=== PATIENT | male | born 1955 | race Caucasian/White ===

== ENCOUNTER 2017-02-12 13:41 | Observation (INO) | payer SELFPAY ==
[~2017-02-12] VITALS: Ht 172.7 cm; Wt 80.0 kg
--- NOTE | 2017-02-12 14:08 | PD ---
HPI Chief Complaint: dizzyness Time Seen by Provider: 13:55 Travel History International Travel<30 days: No Contact w/Intl Traveler<30days: No History of Present Illness HPI Patient is a 61-year-old male with history of diabetes, hypertension, GERD, migraines, who presents to emergency room complaints of headache and dizziness. [place] today, reports that he had been there all day and was not drinking enough water. Patient admits to having 1 beer this afternoon, reports that towards the after noon, he began to feel lightheaded and dizzy. Reports that he feels overall dehydrated. Reports that he does have history of migraines, reports that symptoms feel "different today". Reports nausea with no vomiting. Denies vision changes. Denies chest pain/sob. Denies abdominal pain at this time. Patient was given a 500mg bolus of IVF - reports that he feels mildly better at this time after IVF. PFSH Past Medical History Diabetes: Yes GERD: Yes Hypertension: Yes Neurologic: Yes (migraines) Past Surgical History Other Surgery: Yes (orthopedic surgeries in the past) Social History Alcohol Use: Yes (socially) Tobacco Use: No Substance Use: No Allergies-Medications (Allergen,Severity, Reaction): Coded Allergies: Compazine (Verified Allergy, Unknown, tardive dyskenisia , 02/12/17) Thorazine (Verified Allergy, Unknown, neck stiffness, 02/12/17) Zofran (Verified Allergy, Unknown, headache, 02/12/17) Reported Meds & Prescriptions Reported Meds & Active Scripts Active Reported Verapamil ER 24 HR (Verapamil HCl) 240 Mg Tab 240 Mg PO BID Testosterone Cypionate Inj (Testosterone Cypionate) 200 Mg/Ml Inj 200 Mg IM EVERY 6 MONTHS Imitrex Inj (Sumatriptan Succinate) 6 Mg/0.5 Ml Inj 6 Mg SQ ONCE PRN May repeat dose in 2 hours if needed. Aciphex (Rabeprazole Sodium) 20 Mg Tab 40 Mg PO HS Metformin ER (Metformin HCl) 500 Mg Re 500 Mg PO DAILY With evening meal Multiple Vitamin 1 Tab 1 Tab PO DAILY Fish Oil 1,000 mg Softgel ([place]-3/Dha/Epa/Fish Oil) 1,000 Mg Capsule 3,000 Mg PO BID Westhroid (Thyroid) Unknown Strength Tab 1 Tab PO DAILY Cialis (Tadalafil) 5 Mg Tab 5 Mg PO HS Do not exceed 1 dose/day. Lipitor (Atorvastatin Calcium) 10 Mg Tab 10 Mg PO HS Abilify (Aripiprazole) 10 Mg Tab 10 Mg PO DAILY Pristiq 24 HR (Desvenlafaxine ER 24 HR) 100 Mg Tab 100 Mg PO DAILY Chlorthalidone 25 Mg Tab 25 Mg PO BID Klonopin (Clonazepam) 0.5 Mg Tab 0.5 Mg PO BID Buprenorphine (Buprenorphine HCl) 8 Mg Subl 8 Mg SL DAILY Review of Systems General / Constitutional: No: Fever Eyes: No: Visual changes HENT: Positive: Headaches, Lightheadedness Cardiovascular: No: Chest Pain or Discomfort Respiratory: No: Shortness of Breath Gastrointestinal: No: Abdominal Pain Genitourinary: No: Dysuria Musculoskeletal: No: Pain Skin: No Rash Neurologic: Positive: Weakness, Dizziness, Headache Psychiatric: No: Depression Endocrine: No: Polydipsia Hematologic/Lymphatic: No: Easy Bruising Physical Exam Narrative GENERAL: Mild distress SKIN: Focused skin assessment warm/dry. HEAD: Atraumatic. Normocephalic. EYES: Pupils equal and round. No scleral icterus. No injection or drainage. ENT: No nasal bleeding or discharge. Mucous membranes pink and moist. NECK: Trachea midline. No JVD. CARDIOVASCULAR: Regular rate and rhythm. No murmur appreciated. RESPIRATORY: No accessory muscle use. Clear to auscultation. Breath sounds equal bilaterally. GASTROINTESTINAL: Abdomen soft, non-tender, nondistended. Hepatic and splenic margins not palpable. MUSCULOSKELETAL: No obvious deformities. No clubbing. No cyanosis. No edema. NEUROLOGICAL: Awake and alert. No obvious cranial nerve deficits. Motor grossly within normal limits. Normal speech. CN 2-12 grossly intact with no neurological deficits PSYCHIATRIC: Appropriate mood and affect; insight and judgment normal. Data Data Last Documented VS Vital Signs Date Time Temp Pulse Resp B/P Pulse Ox O2 Delivery O2 Flow Rate FiO2 02/12/17 16:54 73 16 134/69 94 Nasal Cannula 2 02/12/17 14:09 97.7 Orders Creatine Kinase (Cpk) (02/12/17 13:55) Complete Blood Count With Diff (02/12/17 13:55) Comprehensive Metabolic Panel (02/12/17 13:55) Lipase (02/12/17 13:55) Prothrombin Time / Inr (Pt) (02/12/17 13:55) Act Partial Throm Time (Ptt) (02/12/17 13:55) Iv Access Insert/Monitor (02/12/17 13:55) Ecg Monitoring (02/12/17 13:55) Oximetry (02/12/17 13:55) Electrocardiogram (02/12/17 13:55) Chest, Single Ap (02/12/17 13:55) Sodium Chlor 0.9% 1000 Ml Inj (Ns 1000 M (02/12/17 14:15) Sodium Chlor 0.9% 1000 Ml Inj (Ns 1000 M (02/12/17 14:15) Acetaminophen (Tylenol) (02/12/17 14:30) Ct Brain W/O Iv Contrast(Rout) (02/12/17 14:36) Drug Screen, Random Urine (02/12/17 14:36) Dexamethasone Inj (Decadron Inj) (02/12/17 15:30) Metoclopramide Inj (Reglan Inj) (02/12/17 15:30) Diphenhydramine Inj (Benadryl Inj) (02/12/17 15:30) Urinalysis - C+S If Indicated (02/12/17 15:19) Alcohol (Ethanol) (02/12/17 14:10) Cta Neck W Iv Contrast W 3d (02/12/17 ) Cta Brain W Iv Contrast W 3d (02/12/17 ) Labs Laboratory Tests Test 02/12/17 02/12/17 14:10 15:45 White Blood Count 8.0 TH/MM3 Red Blood Count 5.98 MIL/MM3 Hemoglobin 12.9 GM/DL Hematocrit 40.7 % Mean Corpuscular Volume 68.0 FL Mean Corpuscular Hemoglobin 21.5 PG Mean Corpuscular Hemoglobin 31.7 % Concent Red Cell Distribution Width 20.0 % Platelet Count 307 TH/MM3 Mean Platelet Volume 8.5 FL Neutrophils (%) (Auto) 49.7 % Lymphocytes (%) (Auto) 27.6 % Monocytes (%) (Auto) 13.5 % Eosinophils (%) (Auto) 8.1 % Basophils (%) (Auto) 1.1 % Neutrophils # (Auto) 3.9 TH/MM3 Lymphocytes # (Auto) 2.2 TH/MM3 Monocytes # (Auto) 1.1 TH/MM3 Eosinophils # (Auto) 0.6 TH/MM3 Basophils # (Auto) 0.1 TH/MM3 CBC Comment DIFF FINAL Differential Comment Prothrombin Time 10.8 SEC Prothromb Time International 1.0 RATIO Ratio Activated Partial 24.7 SEC Thromboplast Time Sodium Level 144 MEQ/L Potassium Level 3.1 MEQ/L Chloride Level 109 MEQ/L Carbon Dioxide Level 28.7 MEQ/L Anion Gap 6 MEQ/L Blood Urea Nitrogen 6 MG/DL Creatinine 0.71 MG/DL Estimat Glomerular Filtration 114 ML/MIN Rate Random Glucose 66 MG/DL Calcium Level 7.1 MG/DL Protein Corrected Calcium 7.9 MG/DL Total Bilirubin 0.3 MG/DL Aspartate Amino Transf 28 U/L (AST/SGOT) Alanine Aminotransferase 38 U/L (ALT/SGPT) Alkaline Phosphatase 58 U/L Total Creatine Kinase 144 U/L Total Protein 5.5 GM/DL Albumin 2.7 GM/DL Lipase 70 U/L Ethyl Alcohol Level LESS THAN 3 MG/DL Urine Color LIGHT-YELLOW Urine Turbidity CLEAR Urine pH 7.5 Urine Specific [place] 1.003 Urine Protein NEG mg/dL Urine Glucose (UA) NEG mg/dL Urine Ketones NEG mg/dL Urine Occult Blood NEG Urine Nitrite NEG Urine Bilirubin NEG Urine Urobilinogen LESS THAN 2.0 MG/DL Urine Leukocyte Esterase NEG Microscopic Urinalysis Comment CULT NOT INDICATED Urine Opiates Screen NEG Urine Barbiturates Screen NEG Urine Amphetamines Screen NEG Urine Benzodiazepines Screen NEG Urine Cocaine Screen NEG Urine Cannabinoids Screen POS MDM Medical Decision Making Medical Screen Exam Complete: Yes Emergency Medical Condition: Yes Interpretation(s) Vital Signs Date Time Temp Pulse Resp B/P Pulse Ox O2 Delivery O2 Flow Rate FiO2 02/12/17 14:09 93 Room Air 02/12/17 14:09 83 18 137/70 93 Differential Diagnosis Differential includes heat exhaustion, rhabdomyolysis, dehydration, electrolyte abnormalities, migraine Narrative Course Patient is a 61 year old male who presents from the [employer] with complaints of dehydration, dizziness and lightheadedness after spending the whole day outside. Patient reports that overall, he has decreased water intake today [place]. Patient's friend who is at bedside reports that he picked patient up yesterday and reports, "he wasn't acting like his normal self." Reports that all of his friends went for public all last night, patient told his friends that he wasn't feeling well and ended up sleeping all night. Reports concern as patient appeared confused yesterday as well this morning. Reports that they'll had not been drinking enough fluids but that because water was expensive but they were trying to do their best to hydrate him. Reports that he has never seen his friend like this in the past. Vital Signs Date Time Temp Pulse Resp B/P Pulse Ox O2 Delivery O2 Flow Rate FiO2 02/12/17 16:54 73 16 134/69 94 Nasal Cannula 2 02/12/17 14:09 93 Room Air 02/12/17 14:09 83 18 137/70 93 02/12/17 14:09 97.7 83 18 137/70 93 Room Air Laboratory Tests Test 02/12/17 02/12/17 14:10 15:45 White Blood Count 8.0 TH/MM3 (4.0-11.0) Red Blood Count 5.98 MIL/MM3 (4.50-5.90) Hemoglobin 12.9 GM/DL (13.0-17.0) Hematocrit 40.7 % (39.0-51.0) Mean Corpuscular Volume 68.0 FL (80.0-100.0) Mean Corpuscular Hemoglobin 21.5 PG (27.0-34.0) Mean Corpuscular Hemoglobin 31.7 % Concent (32.0-36.0) Red Cell Distribution Width 20.0 % (11.6-17.2) Platelet Count 307 TH/MM3 (150-450) Mean Platelet Volume 8.5 FL (7.0-11.0) Neutrophils (%) (Auto) 49.7 % (16.0-70.0) Lymphocytes (%) (Auto) 27.6 % (9.0-44.0) Monocytes (%) (Auto) 13.5 % (0.0-8.0) Eosinophils (%) (Auto) 8.1 % (0.0-4.0) Basophils (%) (Auto) 1.1 % (0.0-2.0) Neutrophils # (Auto) 3.9 TH/MM3 (1.8-7.7) Lymphocytes # (Auto) 2.2 TH/MM3 (1.0-4.8) Monocytes # (Auto) 1.1 TH/MM3 (0-0.9) Eosinophils # (Auto) 0.6 TH/MM3 (0-0.4) Basophils # (Auto) 0.1 TH/MM3 (0-0.2) CBC Comment DIFF FINAL Differential Comment Prothrombin Time 10.8 SEC (9.8-11.6) Prothromb Time International 1.0 RATIO Ratio Activated Partial 24.7 SEC Thromboplast Time (24.3-30.1) Sodium Level 144 MEQ/L (136-145) Potassium Level 3.1 MEQ/L (3.5-5.1) Chloride Level 109 MEQ/L (98-107) Carbon Dioxide Level 28.7 MEQ/L (21.0-32.0) Anion Gap 6 MEQ/L (5-15) Blood Urea Nitrogen 6 MG/DL (7-18) Creatinine 0.71 MG/DL (0.60-1.30) Estimat Glomerular Filtration 114 ML/MIN Rate (>89) Random Glucose 66 MG/DL (74-106) Calcium Level 7.1 MG/DL (8.5-10.1) Protein Corrected Calcium 7.9 MG/DL (8.5-10.1) Total Bilirubin 0.3 MG/DL (0.2-1.0) Aspartate Amino Transf 28 U/L (15-37) (AST/SGOT) Alanine Aminotransferase 38 U/L (12-78) (ALT/SGPT) Alkaline Phosphatase 58 U/L (45-117) Total Creatine Kinase 144 U/L (39-308) Total Protein 5.5 GM/DL (6.4-8.2) Albumin 2.7 GM/DL (3.4-5.0) Lipase 70 U/L (73-393) Ethyl Alcohol Level LESS THAN 3 MG/DL (0-5) Urine Color LIGHT-YELLOW (YELLW/STRAW) Urine Turbidity CLEAR (CLEAR) Urine pH 7.5 (5.0-8.5) Urine Specific [place] 1.003 (1.002-1.035) Urine Protein NEG mg/dL (NEG-TRACE) Urine Glucose (UA) NEG mg/dL (NEG) Urine Ketones NEG mg/dL (NEG) Urine Occult Blood NEG (NEG) Urine Nitrite NEG (NEG) Urine Bilirubin NEG (NEG) Urine Urobilinogen LESS THAN 2.0 MG/DL (LESS THAN 2.0) Urine Leukocyte Esterase NEG (NEG) Microscopic Urinalysis Comment CULT NOT INDICATED Urine Opiates Screen NEG (NEG) Urine Barbiturates Screen NEG (NEG) Urine Amphetamines Screen NEG (NEG) Urine Benzodiazepines Screen NEG (NEG) Urine Cocaine Screen NEG (NEG) Urine Cannabinoids Screen POS (NEG) Last Impressions Head CT 02/12/17 1436 Signed Impressions: Service Date/Time: Sunday, February 12, 2017 16:03 - CONCLUSION: Negative exam. Michael Foote MD Chest X-Ray 02/12/17 1355 Signed Impressions: Service Date/Time: Sunday, February 12, 2017 13:53 - CONCLUSION: Hypoinflation with no acute cardiopulmonary process. Michael Foote MD Patient now reports that headache has not resolved and he is not feeling any better. CTA ordered to evaluate of possible intracranial aneurysm. Plan to admit for intractable headache Case discussed with Dr. King who accepts pt to service on behalf of Dr. Bean. He will follow up with CTA results ordered in the ER. Diagnosis Primary Impression: Intractable headache Admitting Information Admitting Physician Requests: Caitlin Manzo DO Feb 12, 2017 14:08
[2017-02-12 14:09] VITALS: BP 137/70; PULSE 83; RESP 18; TEMP 97.7; O2SAT 93
[2017-02-12] MEDS ORDERED: SODIUM CHLOR 0.9% 1000 ML INJ 1,000 ML IV ONE ×2 (14:15)
--- NOTE | 2017-02-12 14:28 | RADRPT ---
EXAM DATE/TIME: 02/12/2017 13:53 [facility] COMPARISON: No previous studies available for comparison. INDICATIONS : Dizziness and weakness. MEDICAL HISTORY : Hypertension. SURGICAL HISTORY : None. ENCOUNTER: Initial ACUITY: 1 day PAIN SCORE: 0/10 LOCATION: Bilateral chest FINDINGS: A single view of the chest demonstrates the lungs to be symmetrically, but under aerated without evid ence of mass, infiltrate or effusion. The cardiomediastinal contours are unremarkable. Osseous stru ctures are intact. CONCLUSION: Hypoinflation with no acute cardiopulmonary process. Michael Foote MD on February 12, 2017 at 14:26 Board Certified Radiologist. This report was verified electronically.
[2017-02-12] MEDS ORDERED: ACETAMINOPHEN 325 MG TAB PO ONE (14:30)
[2017-02-12] MEDS ORDERED: BUPR8SUB SL (14:45)
[2017-02-12] MEDS ORDERED: MULTTAB67 PO (14:45)
[2017-02-12] MEDS ORDERED: ACIP20TA6 PO (14:45)
[2017-02-12] MEDS ORDERED: OMEG100046 PO (14:45)
[2017-02-12] MEDS ORDERED: VERA1TAB17 PO (14:45)
[2017-02-12] MEDS ORDERED: PRIS100T PO (14:45)
[2017-02-12] MEDS ORDERED: ARIP1TAB5 PO (14:45)
[2017-02-12] MEDS ORDERED: LIPI10TA PO (14:45)
[2017-02-12] MEDS ORDERED: [UNRECOGNIZED DRUG - CODE] PO (14:45)
[2017-02-12] MEDS ORDERED: CHLO25TA2 PO (14:45)
[2017-02-12] MEDS ORDERED: CLON.5 PO (14:45)
[2017-02-12] MEDS ORDERED: CIAL5TAB PO (14:45)
[2017-02-12] MEDS ORDERED: SUMA6P SQ (14:45)
[2017-02-12] MEDS ORDERED: METF500T4 PO (14:45)
[2017-02-12] MEDS ORDERED: TEST200I12 IM (14:45)
[2017-02-12 15:08] LABS: AUTOMATED NEUTROPHIL # 3.9 TH/MM3 (1.8-7.7); BASOPHIL # 0.1 TH/MM3 (0-0.2); BASOPHIL % 1.1 % (0.0-2.0); EOSINOPHIL # 0.6 TH/MM3 (0-0.4); EOSINOPHIL % 8.1 % (0.0-4.0); HEMATOCRIT 40.7 % (39.0-51.0); HEMO FLAGS DIFF FINAL; LYMPH % 27.6 % (9.0-44.0); LYMPHOCYTE # 2.2 TH/MM3 (1.0-4.8); MEAN CORPUSCULAR HEMOGLOBIN 21.5 PG (27.0-34.0); MEAN CORPUSCULAR HGB CONC 31.7 % (32.0-36.0); MONO % 13.5 % (0.0-8.0); NEUT % 49.7 % (16.0-70.0); PLATELET COUNT 307 TH/MM3 (150-450); RED BLOOD COUNT 5.98 MIL/MM3 (4.50-5.90)
[2017-02-12 15:20] LABS: APTT (PATIENT) 24.7 SEC (24.3-30.1); PROTHROMBIN TIME - PATIENT 10.8 SEC (9.8-11.6)
[2017-02-12] MEDS ORDERED: diphenhydrAMINE HCL 50 MG/ML VIAL IM ONE (15:30)
[2017-02-12] MEDS ORDERED: DEXAMETHASONE SOD PHOS 20 MG/5 ML VIAL IV PUSH ONE (15:30)
[2017-02-12] MEDS ORDERED: METOCLOPRAMIDE HCL 10 MG/2 ML VIAL IV PUSH ONE (15:30)
[2017-02-12 15:44] LABS: ALKALINE PHOSPHATASE 58 U/L (45-117); ALT (GPT) 38 U/L (12-78); ANION GAP 6 MEQ/L (5-15); AST (GOT) 28 U/L (15-37); BICARBONATE 28.7 MEQ/L (21.0-32.0); BLOOD UREA NITROGEN 6 MG/DL (7-18); CALCIUM-PROTEIN CORRECTED 7.9 MG/DL (8.5-10.1); CHLORIDE 109 MEQ/L (98-107); CREATINE KINASE 144 U/L (39-308); GLOMERULAR FILTRATION RATE 114 ML/MIN (>89); POTASSIUM 3.1 MEQ/L (3.5-5.1); SODIUM (NA) 144 MEQ/L (136-145); TOTAL BILIRUBIN ADULT 0.3 MG/DL (0.2-1.0)
[2017-02-12 16:20] LABS: BLOOD, URINE NEG (NEG); GLUCOSE,URINE NEG (NEG); KETONE, URINE NEG (NEG); NITRITE,URINE NEG (NEG); PH, URINE 7.5 (5.0-8.5); URINE COLOR LIGHT-YELLOW (YELLW/STRAW)
[2017-02-12 16:24] LABS: COMMENT (UR) CULT NOT INDICATED; CULTURE IF INDICATED CULT NOT INDICATED
[2017-02-12 16:27] LABS: AMPHETAMINE, URINE NEG (NEG); BARBITURATES, URINE NEG (NEG); COCAINE, URINE NEG (NEG)
--- NOTE | 2017-02-12 16:30 | RADRPT ---
EXAM DATE/TIME: 02/12/2017 16:03 [facility] COMPARISON: No previous studies available for comparison. INDICATIONS : Cephalgia and nausea today. RADIATION DOSE: 56.35 CTDIvol (mGy) MEDICAL HISTORY : Hypertension. diabetes SURGICAL HISTORY : Prostatectomy. ENCOUNTER: Initial ACUITY: 1 day PAIN SCALE: 7/10 LOCATION: Bilateral frontal head TECHNIQUE: Multiple contiguous axial images were obtained of the head. Using automated exposure control and adj ustment of the mA and/or kV according to patient size, radiation dose was kept as low as reasonably a chievable to obtain optimal diagnostic quality images. DICOM format image data is available electro nically for review and comparison. FINDINGS: CEREBRUM: The ventricles are normal for age. No evidence of midline shift, mass lesion, hemorrhage or acute in farction. No extra-axial fluid collections are seen. POSTERIOR FOSSA: The cerebellum and brainstem are intact. The 4th ventricle is midline. The cerebellopontine angle i s unremarkable. EXTRACRANIAL: The visualized portion of the orbits is intact. SKULL: The calvaria is intact. No evidence of skull fracture. CONCLUSION: Negative exam. Michael Foote MD on February 12, 2017 at 16:28 Board Certified Radiologist. This report was verified electronically.
[2017-02-12 16:54] VITALS: BP 134/69; PULSE 73; RESP 16; O2SAT 94
[2017-02-12 19:00] VITALS: BP 133/74; PULSE 72; RESP 18; O2SAT 98
[2017-02-12] MEDS ORDERED: POTASSIUM CHLORIDE 10 MEQ CONTROLLED RELEASE TAB PO ONE (20:00)
[2017-02-12] MEDS ORDERED: CALCIUM GLUCONATE INJ 1 GM in DEXTROSE 5% IN WATER 100ML INJ 100 ML IV ONE ×2 (20:00)
[2017-02-12] MEDS ORDERED: SODIUM CHLORIDE 0.9% FLUSH 10 ML FLUSH IV FLUSH PRN (20:00)
[2017-02-12 20:15] VITALS: BP 158/85; PULSE 72; RESP 18; O2SAT 96
[2017-02-12] MEDS ORDERED: IOHEXOL 350 MG/ML 10 ML VIAL (for RAD DIAG) IV ONE (20:41)
[2017-02-12] MEDS: SODIUM CHLOR 0.9% 1000 ML INJ 1,000 ML IV SCH ×2 (20:49→22:28)
--- NOTE | 2017-02-12 20:55 | HHI.HP ---
[facility] Service Family Medicine Primary Care Physician Non-Staff Admission Diagnosis Intractable headache Diagnoses: International Travel<30 Days: No Contact w/Intl Traveler<30days: No Known Affected Area: No History of Present Illness Patient is a 61 year old male with history of DM II, HTN, migraine who presented to the ED complaining of headache, nausea and dizziness. The patient [place] and states he did not drink almost any water while outside. He felt well in the morning, however as the day progressed he became nauseous, dizzy and had a significant headache. The headache was 7-8/10, supraorbital, constant and is described as "a hammer and chisel to the head." Although he does have a history of migraines, this does not feel the same as a typical migraine and does not have as significant a photophobia or sonophobia aspect as his migraines do. He notes that he had not urinated all day until after fluids were administered in the ambulance. No fever , chills, abdominal pain, diarrhea, chest pain, shortness of breath, neck pain, change in vision, muscle weakness, slurred speech. At admission the nausea and dizziness had improved, however the headache has not improved and is still a 7-8 /10. Review of Systems Constitutional: COMPLAINS OF: Fatigue, Dizziness, DENIES: Diaphoretic episodes , Fever, Chills, Change in appetite, Night Sweats Endocrine: DENIES: Heat/cold intolerance, Polydipsia, Polyuria, Polyphagia Eyes: DENIES: Blurred vision, Diplopia, Eye inflammation, Eye pain, Vision loss , Photosensitivity, Double Vision Ears, nose, mouth, throat: DENIES: Tinnitus, Hearing loss, Vertigo, Nasal discharge, Oral lesions, Throat pain, Hoarseness, Ear Pain, Running Nose, Epistaxis, Sinus Pain, Toothache, Odynophagia Respiratory: DENIES: Apneas, Cough, Wheezing, Sputum production, Shortness of breath Cardiovascular: DENIES: Chest pain, Palpitations, Syncope, Dyspnea on Exertion , Lower Extremity Edema Gastrointestinal: DENIES: Abdominal pain, Black stools, Bloody stools, Constipation, Diarrhea, Nausea, Vomiting, Difficulty Swallowing, Anorexia Genitourinary: COMPLAINS OF: Sexual dysfunction (On cialis), DENIES: Urinary frequency, Urinary incontinence, Urgency, Hematuria, Dysuria, Nocturia Musculoskeletal: DENIES: Joint pain, Muscle aches, Stiffness, Joint Swelling, Back pain, Neck pain Integumentary: DENIES: Abnormal pigmentation, Nail changes, Pruritus, Rash Hematologic/lymphatic: DENIES: Bruising, Lymphadenopathy Neurologic: COMPLAINS OF: Headache, DENIES: Abnormal gait, Localized weakness , Paresthesias, Seizures, Speech Problems, Tremor, Poor Balance Psychiatric: DENIES: Anxiety, Confusion, Mood changes Past Family Social History Past Medical History Diabetes Mellitus type 2 Hypertension Depression Migraine Past Surgical History Failed vasectomy 1994 Orchiectomy 1994 Left patellar knee surgery Allergies: Coded Allergies: Reglan (Verified Allergy, Severe, 02/12/17) neck stiffness Compazine (Verified Allergy, Unknown, tardive dyskenisia , 02/12/17) Thorazine (Verified Allergy, Unknown, neck stiffness, 02/12/17) Zofran (Verified Allergy, Unknown, headache, 02/12/17) Phenergan (Verified Adverse Reaction, Severe, 02/12/17) neck stiffness up Family History Mother - at 59 due to septicemia, history of depression, hypertension, anxiety Father - at 89, Hypertension, Diabetes Social History Alcohol: Drinks 1-2 beers per month Drugs: "tried marijuana once," no other illicit drug use Smoking: .5 ppd for 6 years "in college" Physical Exam Vital Signs Vital Signs Date Time Temp Pulse Resp B/P Pulse Ox O2 Delivery O2 Flow Rate FiO2 02/12/17 20:15 72 18 158/85 96 Room Air 02/12/17 19:00 72 18 133/74 98 Room Air 02/12/17 16:54 73 16 134/69 94 Nasal Cannula 2 02/12/17 14:09 93 Room Air 02/12/17 14:09 83 18 137/70 93 02/12/17 14:09 97.7 83 18 137/70 93 Room Air Physical Exam GENERAL: This is a well-nourished, well-developed patient, in no apparent distress. SKIN: No rashes, ecchymoses or lesions. Cool and dry. HEAD: Atraumatic. Normocephalic. No temporal or scalp tenderness. EYES: Pupils equal round and reactive. Extraocular motions intact. No scleral icterus. No injection or drainage. ENT: Nose without bleeding, purulent drainage or septal hematoma. Throat without erythema, tonsillar hypertrophy or exudate. Uvula midline. Airway patent. NECK: Trachea midline. No JVD or lymphadenopathy. Supple, nontender, no meningeal signs. CARDIOVASCULAR: Regular rate and rhythm without murmurs, gallops, or rubs. Normal S1/S2 RESPIRATORY: Clear to auscultation. Breath sounds equal bilaterally. No wheezes , rales, or rhonchi. GASTROINTESTINAL: Abdomen soft, non-tender, nondistended. No hepato-splenomegaly , or palpable masses. No guarding. MUSCULOSKELETAL: Extremities without clubbing, cyanosis, or edema. No joint tenderness, effusion, or edema noted. No calf tenderness. NEUROLOGICAL: Awake and alert. Cranial nerves II through XII intact. Motor and sensory grossly within normal limits. 4/5 muscle strength in all extremities ( reported normal for this patient). Normal speech. Laboratory Laboratory Tests Test 02/12/17 02/12/17 14:10 15:45 White Blood Count 8.0 Red Blood Count 5.98 Hemoglobin 12.9 Hematocrit 40.7 Mean Corpuscular Volume 68.0 Mean Corpuscular Hemoglobin 21.5 Mean Corpuscular Hemoglobin 31.7 Concent Red Cell Distribution Width 20.0 Platelet Count 307 Mean Platelet Volume 8.5 Neutrophils (%) (Auto) 49.7 Lymphocytes (%) (Auto) 27.6 Monocytes (%) (Auto) 13.5 Eosinophils (%) (Auto) 8.1 Basophils (%) (Auto) 1.1 Neutrophils # (Auto) 3.9 Lymphocytes # (Auto) 2.2 Monocytes # (Auto) 1.1 Eosinophils # (Auto) 0.6 Basophils # (Auto) 0.1 CBC Comment DIFF FINAL Differential Comment Prothrombin Time 10.8 Prothromb Time International 1.0 Ratio Activated Partial 24.7 Thromboplast Time Sodium Level 144 Potassium Level 3.1 Chloride Level 109 Carbon Dioxide Level 28.7 Anion Gap 6 Blood Urea Nitrogen 6 Creatinine 0.71 Estimat Glomerular Filtration 114 Rate Random Glucose 66 Calcium Level 7.1 Protein Corrected Calcium 7.9 Total Bilirubin 0.3 Aspartate Amino Transf 28 (AST/SGOT) Alanine Aminotransferase 38 (ALT/SGPT) Alkaline Phosphatase 58 Total Creatine Kinase 144 Total Protein 5.5 Albumin 2.7 Lipase 70 Ethyl Alcohol Level LESS THAN 3 Urine Color LIGHT-YELLOW Urine Turbidity CLEAR Urine pH 7.5 Urine Specific [place] 1.003 Urine Protein NEG Urine Glucose (UA) NEG Urine Ketones NEG Urine Occult Blood NEG Urine Nitrite NEG Urine Bilirubin NEG Urine Urobilinogen LESS THAN 2.0 Urine Leukocyte Esterase NEG Microscopic Urinalysis Comment CULT NOT INDICATED Urine Opiates Screen NEG Urine Barbiturates Screen NEG Urine Amphetamines Screen NEG Urine Benzodiazepines Screen NEG Urine Cocaine Screen NEG Urine Cannabinoids Screen POS Result Diagram: 02/12/17 1410 02/12/17 1410 Assessment and Plan Assessment and Plan 61 year old male with history of HTN, DM II, and migrains who presented to the ED with nausea, dizziness, oliguria and headache following extended activity outside without much water intake. Headaches differ from typical migraine symptoms. Patient received 2L of NS in the ER with resulting decrease in dizziness and nausea, but persistent headache rated at 7-8/10. Patient has urinated several times since presentation to ED. Unremarkable Head CT. Code Status Full Problem List: (1) Intractable headache Status: Acute Plan: - IVF maintenance - F/U BMP - F/U CBC - Tylenol 1000mg q6 for pain control - Toradol prn continued pain - Morphine prn breakthrough (2) Diabetes type 2, controlled Status: Chronic Plan: - Reported well controlled with last A1C 5.9 - Discontinue metformin - Low dose sliding scale (3) Hypertension Status: Chronic Plan: - Continue home medications (4) FEN Status: Acute Plan: - Maintenance fluids at 120 ml/hr - monitor and correct electrolytes as needed - Full diet - Lovenox 30mg DVT prophylaxis Problem Qualifiers (1) Intractable headache: Qualified Code: G44.201 - Acute intractable tension-type headache (2) Diabetes type 2, controlled: Qualified Code: E11.9 - Controlled type 2 diabetes mellitus without complication, without long-term current use of insulin (3) Hypertension: Qualified Code: I10 - Hypertension, unspecified type Jairo Lake MD R1 Feb 12, 2017 20:55
[2017-02-12 20:56] VITALS: O2SAT 96
[2017-02-12] MEDS ORDERED: SODIUM CHLORIDE 0.9% FLUSH 10 ML FLUSH IV FLUSH SCH (21:00)
--- NOTE | 2017-02-12 21:08 | RADRPT ---
EXAM DATE/TIME: 02/12/2017 20:22 [facility] COMPARISON: CT BRAIN W/O CONTRAST, February 12, 2017, 16:03. INDICATIONS : Headache this morning with dizziness and nausea. IV CONTRAST: 95 cc Omnipaque 350 (iohexol) IV ; Cumulative dose for multiple exams. RADIATION DOSE: 16.44 CTDIvol (mGy) ; Combined studies MEDICAL HISTORY : Cardiovascular disease. Hypertension. Diabetes mellitus type 2. SURGICAL HISTORY : Hemorrhoidectomy. Left orchiectomy. ENCOUNTER: Initial ACUITY: 1 day PAIN SCALE: 6/10 LOCATION: cranial TECHNIQUE: Volumetric scanning was performed using a multi-row detector CT scanner. The data was post processed with a variety of visualization algorithms including full volume maximum intensity projection, multi -planar sliding thin slab reformation, curved planar reformation, and surface rendering techniques. Using automated exposure control and adjustment of the mA and/or kV according to patient size, radiat ion dose was kept as low as reasonably achievable to obtain optimal diagnostic quality images. DICO M format image data is available electronically for review and comparison. FINDINGS: There is excellent visualization of the major intracranial arteries out to the second-order branch ve ssels. There is no evidence for aneurysm, vessel truncation or stenosis, and no evidence for vascula r malformation. CONCLUSION: Unremarkable exam. Jairo Bruner MD on February 12, 2017 at 21:04 Board Certified Radiologist. This report was verified electronically.
--- NOTE | 2017-02-12 21:10 | RADRPT ---
EXAM DATE/TIME: 02/12/2017 20:22 [place] COMPARISON: No previous studies available for comparison. INDICATIONS : Headache this morning with dizziness and nausea. IV CONTRAST: 95 cc Omnipaque 350 (iohexol) IV ; Cumulative dose for multiple exams. RADIATION DOSE: 16.44 CTDIvol (mGy) ; Combined studies MEDICAL HISTORY : Cardiovascular disease. Hypertension. Diabetes mellitus type 2. SURGICAL HISTORY : Hemorrhoidectomy. Left orchiectomy. ENCOUNTER: Initial ACUITY: 1 day PAIN SCALE: 0/10 LOCATION: neck Elevated flow velocities and ICA/CCA ratios have been found to correlate with increased degrees of vessel stenosis, calculated as percentage of diameter relative to a normal segment of distal ICA/CCA. TECHNIQUE: Volumetric scanning was performed using a multirow detector CT scanner. The data was post processed with a variety of visualization algorithms including full-volume maximum intensity projection, multip lanar sliding thin-slab reformation, curved-planar reformation, and surface-rendering techniques. Us ing automated exposure control and adjustment of the mA and/or kV according to patient size, radiatio n dose was kept as low as reasonably achievable to obtain optimal diagnostic quality images. DICOM f ormat image data is available electronically for review and comparison. FINDINGS: AORTIC ARCH: There is a three-vessel origin of the great vessels from the aorta. No evidence of ostial narrowing. RIGHT CAROTID: The common carotid artery is intact. The carotid bulb has a normal configuration with mild calcific p laque. The internal carotid artery lumen is smooth without stenosis. The external carotid artery is intact. LEFT CAROTID: The common carotid artery is intact. The carotid bulb has a normal configuration without ulceration or narrowing. The internal carotid artery lumen is smooth without stenosis. The external carotid ar makenzie is intact. VERTEBRALS: The vertebral arteries have a symmetric diameter. No stenotic lesions are seen. CONCLUSION: 1. Mild calcified plaque in the right carotid bulb with no significant stenosis. 2. The study is otherwise unremarkable. Jairo Bruner MD on February 12, 2017 at 21:06 Board Certified Radiologist. This report was verified electronically.
[2017-02-12] MEDS ORDERED: BISACODYL 10 MG SUPP RECTAL PRN (21:45)
[2017-02-12] MEDS ORDERED: LACTULOSE SYRUP 20 GM/30 ML CUP PO PRN (21:45)
[2017-02-12] MEDS ORDERED: DOCUSATE SODIUM 50 MG/SENNA 8.6 MG TAB PO PRN (21:45)
[2017-02-12] MEDS ORDERED: ACETAMINOPHEN 325 MG TAB PO PRN (21:45)
[2017-02-12] MEDS ORDERED: ENOXAPARIN SODIUM 30 MG/0.3 ML SYRINGE SQ SCH (21:45)
[2017-02-12] MEDS ORDERED: SENNOSIDES 8.6 MG TAB PO PRN (21:45)
[2017-02-12] MEDS ORDERED: NALOXONE HCL 0.4 MG/ML AMP IV PRN ×2 (21:45→22:00)
[2017-02-12] MEDS ORDERED: MAGNESIUM HYDROXIDE SUSP 30 ML CUP PO PRN (21:45)
[2017-02-12] MEDS ORDERED: ZOLPIDEM TARTRATE 5 MG TAB PO PRN (21:45)
[2017-02-12] MEDS: ACETAMINOPHEN 1000 MG/100 ML VIAL IV SCH (22:00)
[2017-02-12] MEDS ORDERED: IBUPROFEN 400 MG TAB PO PRN (22:00)
[2017-02-12] MEDS ORDERED: MORPHINE SULFATE 4 MG/ML INJ IV PRN (22:00)
[2017-02-12] MEDS ORDERED: KETOROLAC TROMETHAMINE 30 MG/ML (IVP) VIAL IVP PRN ×2 (22:00)
[2017-02-12 22:26] VITALS: BP 162/92; PULSE 87; RESP 18; TEMP 98.3; O2SAT 95
[2017-02-12] MEDS: clonazePAM 0.5 MG TAB PO SCH (23:45)
[2017-02-12] MEDS ORDERED: GLUCAGON 1 MG/ML VIAL OTHER PRN (23:45)
[2017-02-12] MEDS ORDERED: DEXTROSE 50% IN WATER 50 ML VIAL(D50) IV PRN (23:45)
[2017-02-12] MEDS ORDERED: SUMAtriptan INJ 6 MG/0.5 ML VIAL SQ PRN (23:45)
[2017-02-12] MEDS ORDERED: MORPHINE SULFATE 8 MG/ML INJ IV PUSH PRN (23:45)
[2017-02-13] MEDS: ACETAMINOPHEN 1000 MG/100 ML VIAL IV SCH
[2017-02-13 04:01] VITALS: BP 169/84; PULSE 83; RESP 17; TEMP 98.1; O2SAT 96
[2017-02-13] MEDS ORDERED: ACETAMINOPHEN 1000 MG/100 ML VIAL IV SCH (06:00)
[2017-02-13] MEDS ORDERED: INSULIN ASPART SUPPLEMENTAL SCALE SQ SCH (07:00)
[2017-02-13 07:16] VITALS: BP 157/85; PULSE 75; RESP 15; TEMP 98; O2SAT 95
[2017-02-13 07:23] VITALS: O2SAT 93
[2017-02-13 08:26] LABS: AUTOMATED NEUTROPHIL # 4.8 TH/MM3 (1.8-7.7); BASOPHIL % 0.1 % (0.0-2.0); HEMATOCRIT 42.7 % (39.0-51.0); HEMO FLAGS DIFF FINAL; LYMPH % 18.4 % (9.0-44.0); LYMPHOCYTE # 1.1 TH/MM3 (1.0-4.8); MEAN CELL VOLUME 68.6 FL (80.0-100.0); MEAN CORPUSCULAR HGB CONC 30.7 % (32.0-36.0); MONO % 1.6 % (0.0-8.0); NEUT % 79.9 % (16.0-70.0); PLATELET COUNT 306 TH/MM3 (150-450); RED BLOOD COUNT 6.23 MIL/MM3 (4.50-5.90); RED CELL DISTRIBUTION WIDTH 19.6 % (11.6-17.2)
[2017-02-13 08:48] LABS: BICARBONATE 27.3 MEQ/L (21.0-32.0); POTASSIUM 4.1 MEQ/L (3.5-5.1)
[2017-02-13] MEDS ORDERED: ARIPiprazole 10 MG TAB PO SCH (09:00)
[2017-02-13] MEDS ORDERED: clonazePAM 0.5 MG TAB PO SCH (09:00)
[2017-02-13] MEDS ORDERED: PT OWN CHLORTHALIDONE 25 MG PO SCH (09:00)
[2017-02-13] MEDS: clonazePAM 0.5 MG TAB PO SCH (09:00)
[2017-02-13] MEDS ORDERED: PRISTIQ 100 MG PO SCH (09:00)
[2017-02-13] MEDS ORDERED: VERAPAMIL HCL 240 MG SUSTAINED RELEASE TAB PO SCH (09:00)
[2017-02-13] MEDS ORDERED: PNEUMOCOCCAL POLYVALENT INJ 25 MCG/0.5 ML SYR IM ONE (09:00)
--- NOTE | 2017-02-13 10:00 | HHI.FPPN ---
Subjective Remarks Davie Mckeon is a 61yo gentleman with h/o DM II, HTN, and migraine admitted for intractable headache and dizziness. He is visiting from [place] and was at the [facility] today in the heat. He presented to ER after he noticed 7-8/10 headache, different from his usual migraine and decreased sweating despite the heat. Headache described as chisel to the head. He also had decreased urination. For further details, please see resident H&P. This morning, he reports headache has resolved. He is urinating light yellow, after receiving IV hydration. He did report some dizziness when standing to urinate, but reports this is a chronic problem for him. He requests discharge home. ROS: + headache yesterday (now resolved). No chest pain, no palpitations, no SOB. No vision changes , no weakness, no nausea. All other systems reviewed are negative. PMH/PSxH/SocHx/FamHx: Per resident H&P. Significant for: DM II, HTN, depression , migraine. H/O vasectomy, orchiectomy, and left patellar knee surgery. Mother from septicemia. Father from HTN and DM II. 1-2 beers per month, denies recreational drug use. No current smoking. He is a [employer] in [place]. Objective Vitals Vital Signs Date Time Temp Pulse Resp B/P Pulse Ox O2 Delivery O2 Flow Rate FiO2 02/13/17 07:23 93 21 02/13/17 07:16 98.0 75 15 157/85 95 02/13/17 04:01 98.1 83 17 169/84 96 02/13/17 00:21 16 02/12/17 22:30 16 02/12/17 22:26 98.3 87 18 162/92 95 02/12/17 20:56 96 02/12/17 20:15 72 18 158/85 96 Room Air 02/12/17 19:00 72 18 133/74 98 Room Air 02/12/17 16:54 73 16 134/69 94 Nasal Cannula 2 02/12/17 14:09 93 Room Air 02/12/17 14:09 83 18 137/70 93 02/12/17 14:09 97.7 83 18 137/70 93 Room Air I/O 02/12/17 02/12/17 02/12/17 02/13/17 02/13/17 7/10/17 07:00 15:00 23:00 07:00 15:00 23:00 Output Total 700 ml Balance -700 ml Output Urine Total 700 ml # Voids 1 Result Diagram: 02/13/1772402/13/17727 Objective Remarks GENERAL: in NAD, no resp distress, nontoxic. Sitting comfortably in bed. HEENT: NCAT, EOMI, no scleral icterus, no conjunctival injection. MMM. OP clear. NECK: Supple, no meningeal signs. No carotid bruits. CV: RRR, S1 S2. No murmurs CHEST/PULM: CTAB, no crackles, no wheezes ABD/GI: +BS, soft, nontender, nondistended EXT: 2+ DP pulses. No edema. No calf tenderness NEURO: CN II-XII grossly intact. normal muscle tone. 5/5 muscle strength in upper and lower extremities. Cerebellum intact with finger to nose. Negative pronator drift. SKIN: No rashes, no jaundice. PSYCH: Mood and affect are appropriate. Speech fluent. Does not appear to respond to internal stimuli. : No CVAT. A/P Assessment and Plan 61 year old male with history of HTN, DM II, and migraines admitted for intractable headache Problem List: (1) Intractable headache Status: Acute Plan: Resolved. No further intervention at this time. (2) Diabetes type 2, controlled Status: Chronic Plan: - Reported well controlled with last A1C 5.9 No sliding scale insulin needed while in hospital. (3) Hypertension Status: Chronic Plan: - Continue home medications at discharge. BP mildly elevated while in hospital, but he did not receive his home chlorthalidone while here. (4) Orthostatic hypotension Status: Chronic Plan: Orthostatic vitals demonstrate 20 point drop in Systolic BP from Supine to standing. Caution with standing; pt advised on taking care with positional changes. Advised patient to follow up with PCP who may change the timing of his home BP meds. Problem Qualifiers (1) Intractable headache: Qualified Code: G44.201 - Acute intractable tension-type headache (2) Diabetes type 2, controlled: Qualified Code: E11.9 - Controlled type 2 diabetes mellitus without complication, without long-term current use of insulin (3) Hypertension: Qualified Code: I10 - Hypertension, unspecified type Desire Bean MD Feb 13, 2017 10:00 complication, without long-term current use of insulin (3) Hypertension: Qualified Code: I10 - Hypertension, unspecified type Desire Bean MD Feb 13, 2017 10:00
--- NOTE | 2017-02-13 10:07 | HHI.DCPOC ---
Discharge Care Plan Diagnosis: (1) Intractable headache (2) Hypertension (3) Diabetes type 2, controlled Goals to Promote Your Health * To prevent worsening of your condition and complications * To maintain your health at the optimal level Directions to Meet Your Goals Take your medications as prescribed Follow your dietary instruction Follow activity as directed Keep your appointments as scheduled Take your immunizations and boosters as scheduled If your symptoms worsen call your PCP, if no PCP go to Urgent Care Center or Emergency Room Smoking is Dangerous to Your Health. Avoid second hand smoke Call the 24-hour hour crisis hotline for domestic abuse at Julieta Schneider MD R2 Feb 13, 2017 10:07
[2017-02-13 10:21] VITALS: BP_SYST 143; BP_SYST 154; BP_SYST 163; BP_DIAS 72; BP_DIAS 77; BP_DIAS 84
--- NOTE | 2017-02-13 13:15 | EKG ---
Date Performed: 02/12/2017 Time Performed: 14:52:38 PTAGE: 61 years EKG: Sinus rhythm NORMAL ECG NO PREVIOUS TRACING DOCTOR: German Velasco Interpretating Date/Time 02/13/2017 13:12:14
[2017-02-13] MEDS ORDERED: PANTOPRAZOLE SOD 20 MG DELAYED RELEASE TAB PO SCH (21:00)
[2017-02-13] MEDS ORDERED: ATORVASTATIN 10 MG TAB PO SCH (21:00)
== END 2017-02-13 11:17 | disposition home or self-care (01) ==
LOC: NEPC 13:41 → INTOOBSV 19:52 → NEDA 19:52 → NEPFCDU 21:36 → UNDODISIN 02-13 11:17
PROVIDERS: ADMIT Family Medicine; ATTEND Family Medicine
DX: G44.201 Tension-type headache, unspecified, intractable (principal); K21.9 Gastro-esophageal reflux disease without esophagitis; I10 Essential (primary) hypertension; E11.9 Type 2 diabetes mellitus without complications; R42 Dizziness and giddiness; R11.0 Nausea; Z79.899 Other long term (current) drug therapy; Z79.84 Long term (current) use of oral hypoglycemic drugs; E86.0 Dehydration
CPT/HCPCS: 70450; 70496; 70498; 71010; 80048; 80053; 80307; 81001; 82272; 82550; 82948; 83690; 85025; 85610; 85730; 93005; 96361; 96372; 96374; 96375; 99285; G0378; J0131; J0610; J1100; J1200; J1650; J2270; J2765; J7030; Q9967